=== PATIENT | female | born 1990 | race Hispanic/Latino ===

== ENCOUNTER 2018-11-06 15:24 | Emergency (ER) | payer OTHER ==
[~2018-11-06] VITALS: Ht 167.6 cm; Wt 129.3 kg
[2018-11-06] MEDS ORDERED: CEFTRIAXONE SOD 1 GM VIAL IM ONE (16:15)
== END 2018-11-06 16:26 | disposition home or self-care (01) ==
LOC: FSED 15:24
DX: R30.0 Dysuria (principal); R10.31 Right lower quadrant pain; R11.0 Nausea; N30.90 Cystitis, unspecified without hematuria
CPT/HCPCS: 81003; 81025; 87086; 87186; 99283; J0696

== ENCOUNTER 2019-06-10 14:13 | Emergency (ER) | payer OTHER ==
[~2019-06-10] VITALS: Ht 162.6 cm; Wt 140.0 kg
[2019-06-10 14:37] VITALS: BP 122/73
== END 2019-06-10 14:55 | disposition home or self-care (01) ==
LOC: FSED 14:13
DX: R05 Cough (principal); J20.9 Acute bronchitis, unspecified; J02.0 Streptococcal pharyngitis
CPT/HCPCS: 99282

== ENCOUNTER 2022-11-02 20:05 | Emergency (ER) | payer OTHER ==
[~2022-11-02] VITALS: Ht 162.6 cm; Wt 141.5 kg
[2022-11-02] MEDS ORDERED: VENTOLIN HFA18 GM INH (21:10)
[2022-11-02] MEDS ORDERED: CEFDINIR300 MG PO (21:10)
[2022-11-02] MEDS ORDERED: DIPHENHYDRAMINE25 M2 PO (21:10)
== END 2022-11-02 21:30 | disposition home or self-care (01) ==
LOC: FSED 20:09
DX: O26.93 Pregnancy related conditions, unspecified, third trimester (principal); R30.0 Dysuria; J40 Bronchitis, not specified as acute or chronic; R05.9 Cough, unspecified; J30.9 Allergic rhinitis, unspecified; E66.01 Morbid (severe) obesity due to excess calories
CPT/HCPCS: 71046; 81003; 87400; 99283